=== PATIENT | female | born 2000 | race Caucasian/White ===

== ENCOUNTER 2022-06-20 00:12 | Emergency (ER) | payer SELFPAY ==
--- NOTE | ~2022-06-20 | XR_ITS ---
EXAMINATION: XR CHEST CLINICAL INFORMATION: Productive cough COMPARISON: None available. TECHNIQUE: Frontal view of the chest was obtained. FINDINGS: No significant abnormality is noted involving the heart, lungs, mediastinum, bony thorax or soft tissues. XR/XR chest 1V IMPRESSION: Unremarkable examination.
[2022-06-20 00:56] VITALS: BP 98/67; PULSE 91; RESP 18; TEMP 36.8; O2SAT 100; BMI 36.2
--- NOTE | 2022-06-20 01:12 | MHC.EDTECH ---
PT BLOOD DRAWN AND COVID SWAB COLLECTED AND SENT TO LAB .
[2022-06-20 01:13] LABS: MANUAL DIFF FLAG NO
[2022-06-20 01:16] LABS: Basophils Absolute Auto 0.1 X10*3/uL (0.0-0.2); Basophils Percent Auto 0.5 % (0-2); Eosinophils Absolute Auto 0.1 X10*3/uL (0.0-0.4); Eosinophils Percent Auto 0.7 % (0-4); Hematocrit 35.4 % (37.0-47.0); Hemoglobin 11.3 g/dl (12.0-16.0); Imm Gran Abs Auto 0.06 X10*3/uL (0.00-0.03); Imm Gran Pct Auto 0.4 % (0.0-0.4); Lymphocytes Absolute Auto 3.8 X10*3/uL (1.2-4.9); Lymphocytes Percent Auto 25.1 % (20-40); Mean Corpuscular HGB Conc 31.9 g/dl (31.0-35.0); Mean Corpuscular Hemoglobin 25.4 pg (27.0-33.0); Mean Corpuscular Volume 79.6 fL (80.0-98.0); Mean Platelet Volume 9.7 fL (9.4-12.3); Monocytes Absolute Auto 0.7 X10*3/uL (0.1-1.2); Monocytes Percent Auto 4.3 % (2-11); Neutrophils Absolute Auto 10.5 x10*3/uL (2.0-8.3); Platelet Count 345 X10*3/uL (160-400); Red Blood Count 4.45 X10*6/uL (4.20-5.50); Red Cell Distribution Width 13.3 % (11.0-16.0); White Blood Count 15.2 X10*3/uL (4.8-10.8)
[2022-06-20 01:29] LABS: COVID-19 Test Negative (Negative); IDNOW Serial# 6674DD1D
[2022-06-20 01:33] LABS: Alanine Aminotransferase 12 U/L (0-31); Albumin Level 4.1 g/dL (3.5-5.0); Alkaline Phosphatase 72 U/L (39-117); Anion Gap 17 (12-20); Aspartate Amino Transferase 16 U/L (5-31); Bilirubin Total 0.5 mg/dL (0.0-1.0); Blood Urea Nitrogen 12 mg/dL (9-16); Calcium 9.3 mg/dL (8.4-10.2); Carbon Dioxide 19 mmol/L (22-29); Chloride 104 mmol/L (96-108); Creatinine Clr Calc Pharmacy 116.8; Estimated Glomerular Filt Rate > 60; Glucose Random 126 mg/dL (60-115); Potassium 4.3 mmol/L (3.3-5.1); Sodium 136 mmol/L (135-145); Total Protein 7.4 g/dL (6.5-8.0)
--- NOTE | 2022-06-20 02:04 | ED_ITS ---
HPI - General Adult General Chief complaint: General Medical Stated complaint: Cold sores on tongue, multiple complaints Time Seen by Provider: 06/20/22 01:54 Source: patient Mode of arrival: ambulatory Limitations: no limitations History of Present Illness HPI narrative: Patient With nasal congestion for last 2 weeks cough occasional phlegm for last 3 days noticed ulceration on the right side of tongue. Patient diagnosed strep 2 weeks ago taken antibiotic Related Data Allergies Allergy/AdvReac Type Severity Reaction Status Date / Time No Known Allergies Allergy Verified 06/20/22 00:56 Review of Systems Review of Systems: Yes all other systems are reviewed and are negative [facility] Social History Social History Advance Directives: No Advance Directives Information Provided: Yes Physical Exam ED Vital Signs: Vital Signs - 24 hr 06/20/22 00:56 Temperature 98.3 F Pulse Rate 91 Respiratory Rate 18 Blood Pressure 98/67 Pulse Oximetry 100 Oxygen Delivery Method Room Air BMI result Body Mass Index 36.2 Appearance: Alert. Oriented X3. No acute distress. Eyes: PERRLA, No Nystagmus ENT: Pharynx normal. Oral Mucosa moist tongue superficial ulceration right later al margin Neck: Normal inspection. Neck supple. CVS: Normal heart rate and rhythm. Pulses normal. Respiratory: No respiratory distress. Equal air entry bilateral, no wheezing/rales/rhonchi Abdomen: Soft and nontender. Skin: Skin warm and dry. Normal skin color. Normal skin turgor. Extremities: No lower extremity edema. No calf tenderness Neuro: Oriented X 3. Medical Decision Making Lab Data [facility] Lab Attestation statement: I reviewed the patient's lab results. 06/20/22 01:09 06/20/22 01:09 Labs: Lab Results 06/20/22 06/20/22 06/20/22 Range/Units 01:09 01:09 01:09 WBC 15.2 H (4.8-10.8) X10*3/uL RBC 4.45 (4.20-5.50) X10*6/uL Hgb 11.3 L (12.0-16.0) g/dl Hct 35.4 L (37.0-47.0) % MCV 79.6 L (80.0-98.0) fL MCH 25.4 L (27.0-33.0) pg MCHC 31.9 (31.0-35.0) g/dl RDW 13.3 (11.0-16.0) % Plt Count 345 (160-400) X10*3/uL MPV 9.7 (9.4-12.3) fL Immature Gran % (Auto) 0.4 (0.0-0.4) % Neut % (Auto) 69.0 (45-73) % Lymph % (Auto) 25.1 (20-40) % [place] % (Auto) 4.3 (2-11) % Eos % (Auto) 0.7 (0-4) % Baso % (Auto) 0.5 (0-2) % Lymph # (Auto) 3.8 (1.2-4.9) X10*3/uL [place] # (Auto) 0.7 (0.1-1.2) X10*3/uL Eos # (Auto) 0.1 (0.0-0.4) X10*3/uL Baso # (Auto) 0.1 (0.0-0.2) X10*3/uL Abs Immat Gran (auto) 0.06 H (0.00-0.03) X10*3/uL Absolute Neuts (auto) 10.5 H (2.0-8.3) x10*3/uL Absolute Nucleated RBC 0.000 (0.0-0.012) X10*3/uL Nucleated RBC % (auto) 0.0 (0.0-0.2) /100WBC Sodium 136 (135-145) mmol/L Potassium 4.3 (3.3-5.1) mmol/L Chloride 104 (96-108) mmol/L Carbon Dioxide 19 L (22-29) mmol/L Anion Gap 17 (12-20) BUN 12 (9-16) mg/dL Creatinine 0.80 (0.5-1.4) mg/dL Estim Creat Clear Calc 116.8 Estimated GFR > 60 Random Glucose 126 H (60-115) mg/dL Calcium 9.3 (8.4-10.2) mg/dL Total Bilirubin 0.5 (0.0-1.0) mg/dL AST 16 (5-31) U/L ALT 12 (0-31) U/L Alkaline Phosphatase 72 (39-117) U/L Total Protein 7.4 (6.5-8.0) g/dL Albumin 4.1 (3.5-5.0) g/dL COVID-19 (GEORGI) Negative (Negative) COVID-19 Clin Com See Note Discharge Plan Discharge Clinical Impression: Oral aphthous ulcer Patient Disposition: Home, Self-Care Instructions: Canker Sores (ED) Additional Instructions: Avoid hot drinks orajel as advised for pain Stand Alone Forms: Work/School Release Interventions: ED Discharge Assessment Last Done: 06/20/22 02:42 Discharge Date/Time: 06/20/22 02:35
== END 2022-06-20 02:35 | disposition home or self-care (01) ==
PROVIDERS: Emergency Provider Internal Medicine
DX: K12.0 Recurrent oral aphthae (principal); Z20.822 Contact with and (suspected) exposure to COVID-19
CPT/HCPCS: 71045; 80053; 85025; 87635; 99283

== ENCOUNTER 2022-07-10 06:08 | Emergency (ER) | payer SELFPAY ==
[2022-07-10 06:09] VITALS: BP 130/79; PULSE 84; RESP 18; TEMP 36.1; O2SAT 98; BMI 34.2
[2022-07-10 06:35] VITALS: BP 104/45; PULSE 74; RESP 16; TEMP 36.8; O2SAT 98; BMI 34.2
--- NOTE | 2022-07-10 06:38 | ED.GENADULT ---
HPI - General Adult General Chief complaint: Ear Problems Stated complaint: Left ear pain,? infection Time Seen by Provider: 07/10/22 06:34 Source: patient Mode of arrival: ambulatory Limitations: no limitations History of Present Illness HPI narrative: Patient is a 22 year old assigned female at with no reported medical history presenting to the emergency department today with left ear pain. Patient states that approximately 2 days ago, she began to have left ear pain. Patient denies any dizziness, lightheadedness, abdominal pain, nausea, vomiting, fever, chills, blurry vision, double vision, loss of vision, chest pain, difficulty breathing, shortness of breath, back pain, night sweats, pain with urination, increased urinary frequency, increased urinary urgency, blood in her urine or stool, syncope or a near syncopal episode, recent trauma or falls, bowel incontinence, bladder incontinence, bowel retention, bladder retention, or any other complaints at this time. Onset (ago): day(s) (2) Location: left (ear) Radiation: non-radiation Severity: mild Severity scale (1-10): 2 Quality: aching and dull Pain Consistency: constant Relieving factors: none Exacerbating factors: none Associated symptoms: denies other symptoms Treatments prior to arrival: none Related Data Previous Rx's Medication Instructions Recorded amoxicillin 875 mg tablet 875 mg PO BID 7 days #14 tabs 07/10/22 Allergies Allergy/AdvReac Type Severity Reaction Status Date / Time No Known Allergies Allergy Verified 06/20/22 00:56 Review of Systems Constitutional: Constitutional: Reports no additional constitutional complaints, Denies chills, Denies fever(s) and Denies night sweats Eyes: Eyes: Reports no additional eye complaints, Denies blurry vision, Denies change in vision, Denies diplopia, Denies eye discharge, Denies loss of vision and Denies eye pain ENT: Denies dizziness Comments: left ear pain Cardiovascular: Cardiovascular: Reports no additional cardiovascular complaints, Denies chest pain, Denies lightheadedness, Denies Loss of Consciousness and Denies dyspnea Respiratory: Respiratory: Reports no additional respiratory complaints and Denies dyspnea Gastrointestinal: Gastrointestinal: Reports no additional gastrointestinal complaints, Denies abdominal pain, Denies melena, Denies hematochezia, Denies change in bowel habits and Denies change in stool character Genitourinary: Genitourinary: Denies hematuria, Denies urinary frequency, Denies dysuria, Denies urinary incontinence, Denies urinary hesitancy and Denies urinary urgency Musculoskeletal: Musculoskeletal: Reports no additional musculoskeletal complaints, Denies numbness and Denies tingling Neurologic: Denies dizziness, Denies loss of vision, Denies numbness and Denies tingling Psychiatric: Psychiatric: Reports no additional psychiatric complaints Endocrine: Endocrine: Reports no additional endocrine complaints Hematologic/Lymphatic: Hematologic/Lymphatic: Reports no additional hematologic/lymphatic complaints Allergic/Immunologic: Allergic/Immunologic: Reports no additional allergic/immunologic complaints [facility] Past Medical History Attestation statement: The following information was validated with the patient. Source: old records reviewed and nursing notes reviewed Social History Social History Advance Directives: No Advance Directives Information Provided: Yes Physical Exam ED Vital Signs: Vital Signs - 24 hr 07/10/22 06:09 07/10/22 06:35 Temperature 96.9 F 98.2 F Pulse Rate 84 74 Respiratory Rate 18 16 Blood Pressure 130/79 104/45 L Pulse Oximetry 98 98 Oxygen Delivery Method Room Air Room Air BMI result Body Mass Index 34.2 Const General: cooperative, no acute distress, alert and awake Nutritional Appearance: well nourished Orientation/consciousness: patient oriented x3 Limitations: no limitations HENMT Head: Yes normal to inspection and Yes atraumatic Ears: hearing grossly normal bilaterally, external ears normal and TM abnormal erythematous on the left General nose exam: Normal external nose present, no nasal discharge noted and no epistaxis Face and sinus: Yes normal facial exam, No abrasion and No laceration Mouth: Normal oral and palatal mucosa present, no drooling and no muffled voice Eyes General: appearance normal, both eyes and all related structures Periorbital: periorbital findings normal Eyelids: Yes eyelids normal Conjunctivae: conjunctivae normal Pupils: Equal, round and reactive pupils present EOM: EOMs intact bilaterally Neck Neck: Yes normal visual inspection, Yes full ROM and Yes no lymphadenopathy Chest Chest palpation & inspection: normal inspection of the chest Resp Effort & Inspection: normal respiratory effort and able to speak in complete sentences GI Inspection: Yes normal to inspection Neuro General: patient oriented x3 and moves all extremities Cranial nerves: Yes Equal, round and reactive pupils present Cognition (Neuro): normal cognition Motor exam (neuro): 5/5 motor strength present throughout Sensory Exam: Normal double simultaneous stimulation for sensation Coordination: [id number] test normal Extrem General: Yes normal to inspection, Yes full ROM and Yes capillary refill normal Psych Appearance: grossly normal Mental Status: mental status grossly normal Affect: normal affect Attitude: cooperative Thought process: Normal thought process present Thought content: Normal thought content present Insight: Good insight present (Psych) Medical Decision Making Medical Decision Making MDM Narrative: Patient is a 22 year old assigned female at with no reported medical history presenting to the emergency department today with left ear pain. Patient's physical exam showed erythema of the left TM but was otherwise unremarkable. I explained my physical exam findings to the patient. I answered all questions asked by the patient. I stressed the importance of the patient taking her medication as prescribed. I stressed the importance of the patient following up with her primary care provider. I stressed the importance of the patient returning to the emergency department immediately if her symptoms were to worsen or if she were to develop any dizziness, shortness of breath, difficulty breathing, chest pain, blurry vision, loss of vision, nausea, vomiting, abdominal pain, fever, chills, back pain, or any other complaints. Patient verbalized agreement and understanding with this treatment plan and discharge. Differential Diagnosis Differential Diagnoses: The differential diagnosis associated with the presentation includes otitis media Discharge Plan Discharge Clinical Impression: Otitis media Patient Disposition: Home, Self-Care Instructions: Ear Infection (ED) Additional Instructions: Follow up with your primary care provider. Return to the emergency department immediately if your symptoms worsen or if you develop any dizziness, shortness of breath, difficulty breathing, chest pain, blurry vision, loss of vision, nausea, vomiting, abdominal pain, fever, chills, back pain, or any other complaints. Prescriptions: New amoxicillin 875 mg tablet 875 mg PO BID 7 Days Qty: 14 0RF Referrals: [facility] Family Medicine [Provider Group] (Call to establish and follow up with a primary care provider. If you already have a primary care provider, please follow up with them.) [facility] [Provider Group] (Call to establish and follow up with a primary care provider. If you already have a primary care provider, please follow up with them.) [facility] [Provider Group] (Call to establish and follow up with a primary care provider. If you already have a primary care provider, please follow up with them.) Stand Alone Forms: Work/School Release Print Language: Pashto
--- NOTE | 2022-07-10 07:14 | PC.NURSE ---
this customs entry writer assumed care of this pt at 0700. pt cleared for discharge at the time of assuming care.
--- NOTE | 2022-07-10 07:23 | PC.NURSE ---
discharge instructions reviewed with pt and friend at her bedside.
== END 2022-07-10 07:27 | disposition home or self-care (01) ==
PROVIDERS: Emergency Provider Emergency Medicine
DX: H66.92 Otitis media, unspecified, left ear (principal); H92.02 Otalgia, left ear
CPT/HCPCS: 99282

== ENCOUNTER 2022-11-20 15:25 | Emergency (ER) | payer SELFPAY ==
--- NOTE | ~2022-11-20 | XR_ITS ---
EXAMINATION: XR KNEE, LEFT CLINICAL INFORMATION: Knee pain. COMPARISON: None available. TECHNIQUE: AP and lateral views of the left knee. FINDINGS: No fracture or joint effusion appreciated. Alignment is anatomic. Joint spaces appear maintained. No abnormal soft tissue calcification. XR/XR knee LT 2V IMPRESSION: Normal plain film examination of the left knee.
--- NOTE | ~2022-11-20 | XR_ITS ---
EXAMINATION: XR ANKLE, RIGHT CLINICAL INFORMATION: Ankle pain. COMPARISON: None available. TECHNIQUE: AP, lateral, and mortise views of the right ankle. FINDINGS: No fracture identified. Alignment is anatomic. No erosions appreciated. Joint spaces appear maintained. Soft tissues appear unremarkable. XR/XR ankle RT min 3V IMPRESSION: Normal plain film examination of the right ankle.
[2022-11-20 15:30] VITALS: BP 123/70; PULSE 80; RESP 18; TEMP 36.1; O2SAT 100; BMI 37.1
--- NOTE | 2022-11-20 15:30 | ED.GENADULT ---
HPI - General Adult General Chief complaint: Extremity Injury, Lower Stated complaint: R ankle and L knee pain Time Seen by Provider: 11/20/22 18:31 History of Present Illness HPI narrative: Patient is a 22-year-old female who presents emergency department for evaluation of left knee and right ankle pain. She reports 3 [place] she reports near [place] and injuring her left knee and right ankle. She has been ambulatory since the incident occurred, however she has been having increasing pain without associated numbness, tingling, or cold sensation to the feet. She states that she feels unsteady when walking, and feels as though her left knee is going to ?give way?. She denies any prior injury to the knee. She does have a history of an ankle sprain on the right many years ago. Related Data Previous Rx's Medication Instructions Recorded amoxicillin 875 mg tablet 875 mg PO BID 7 days #14 tabs 07/10/22 Allergies Allergy/AdvReac Type Severity Reaction Status Date / Time No Known Allergies Allergy Verified 11/20/22 15:30 Review of Systems Review of Systems: Yes all other systems are reviewed and are negative [facility] Past Medical History Attestation statement: The following information was validated with the patient. Source: old records reviewed Social History Social History Advance Directives: No Advance Directives Information Provided: Yes Physical Exam ED Vital Signs: Vital Signs - 24 hr 11/20/22 15:30 Temperature 97.0 F Pulse Rate 80 Respiratory Rate 18 Blood Pressure 123/70 Pulse Oximetry 100 Oxygen Delivery Method Room Air BMI result Body Mass Index 37.1 Appearance: Alert.?Oriented to person, place and time. No acute distress.?Normal affect..?? Neck: Normal inspection.? Neck supple.?? CVS: Heart sounds normal. Normal heart rate and rhythm.? Pulses normal.?? Respiratory: No respiratory distress.? Lung sounds clear to auscultation bilaterally?? Abdomen: Soft and non-tender. Skin: Skin warm and dry.? Normal skin color.?? Extremities: No lower extremity edema.? No calf ttp. Left knee without evidence of effusion, no erythema, no warmth, no laxity upon examination; anterior/posterior drawer test negative, valgus and varus stress tests are negative. Right ankle without erythema, warmth, obvious deformity, full AROM intact. 2+DP/PT pulse bilaterally. Neuro: Moves all extremities spontaneously. Sensation intact bilaterally. Ambulates with slow antalgic gait. Course Course Course Narrative: This is an RME: Additional HPI, ROS, PE not included below will be deferred to primary provider. 22 year old female presenting after injuring herself while [place]. She reports injury to her left knee and right ankle. Rates her pain a 7/10. Denies numbness or tingling. Pain and feels unsteady walking as her joints may give way. Plan: imaging Medical Decision Making Medical Decision Making MDM Narrative: Patient is a 22-year-old female presents emergency department for evaluation of traumatic left knee and right ankle pain after incident 3 days ago. She is ambulatory with a slow antalgic gait. Her pain is most notable to the left knee. On examination there is no evidence of septic arthritis, she is overall well-appearing nontoxic. No significant effusion or gross abnormality of the joints upon examination. XR imaging of the left knee as well as the right ankle without evidence of acute fracture or dislocation. Discussed pain management with acetaminophen/ibuprofen, provided with crutches to offload weight from left knee, Reagan bandage for compression. Reviewed rest, ice, elevation. Advised outpatient follow-up with primary care provider for persistent symptoms. Discussed worrisome signs and symptoms that would warrant re-evaluation emergency department. All questions answered. Stable for discharge. Differential Diagnosis Differential Diagnoses: The differential diagnosis associated with the presentation includes (Fracture of in dislocation, sprain) Independent Interpretation I performed an independent interpretation of an: Plain X-Ray (I personally interpreted XR imaging agree with radiologist impression, no evidence of acute fracture dislocation.) Radiology Impression Discussion of test interpretation with radiology: I have reviewed the radiologist's reading. Radiologist Impression: XR/XR ankle RT min 3V IMPRESSION: Normal plain film examination of the right ankle. XR/XR knee LT 2V IMPRESSION: Normal plain film examination of the left knee. Independent Historian Clinical information obtained from an independent historian. History obtained from or confirmed by: Spouse (Present at bedside a confirms history) Prescription Management I considered prescription management with: Pain Medication (Acetaminophen/ibuprofen) Discharge Plan Discharge Clinical Impression: Ankle sprain and strain, Sprain of knee Patient Disposition: Home, Self-Care Instructions: Ankle Sprain (ED) Additional Instructions: As discussed, please follow-up with your primary care provider. X-ray today does not show any evidence of fracture dislocation. Use the crutches as needed to bear weight. Use Reagan bandage for compression and support. Be sure to rest, elevate your leg when possible. You can take ibuprofen 200 mg, 3 tablets (600mg) every 6-8 hours as needed for pain, in addition to Tylenol 500 mg, 2 tablets (1,000mg) every 4-6 hours as needed for pain, but not to exceed 3 doses daily (3,000mg).? Prescriptions: No Action amoxicillin 875 mg tablet 875 mg PO BID 7 Days Qty: 14 0RF Referrals: Physician,Unknown J [Primary Care Provider] - Stand Alone Forms: Work/School Release Interventions: ED Discharge Assessment Last Done: 11/20/22 19:24 Discharge Date/Time: 11/20/22 19:25
== END 2022-11-20 19:25 | disposition home or self-care (01) ==
PROVIDERS: Emergency Provider Emergency Medicine
DX: S93.402A Sprain of unspecified ligament of left ankle, initial encounter (principal); S83.92XA Sprain of unspecified site of left knee, initial encounter; M25.571 Pain in right ankle and joints of right foot; M25.562 Pain in left knee; Y33.XXXA Other specified events, undetermined intent, initial encounter; Y93.9 Activity, unspecified; Y92.9 Unspecified place or not applicable; Y99.9 Unspecified external cause status
CPT/HCPCS: 73560; 73610; 99282; 99283

== ENCOUNTER 2023-05-04 18:18 | Emergency (ER) | payer SELFPAY ==
[2023-05-04 18:41] VITALS: BP 130/65; PULSE 90; RESP 16; TEMP 36.9; O2SAT 100; BMI 35.2
--- NOTE | 2023-05-04 18:41 | ED_ITS ---
HPI - General Adult General Chief complaint: General Medical Stated complaint: vomiting, dizzy, hot flashes Time Seen by Provider: 05/04/23 18:55 Source: patient, RN notes reviewed and old records reviewed Mode of arrival: ambulatory History of Present Illness HPI narrative: 23-year-old female with no significant past medical history presenting to the ED complaining of intermittent lightheadedness, nausea, vomiting, mid-abdominal pain, chills/hot flashes, congestion & myalgias x1 week. Also reports decreased PO intake. Denies diarrhea, cough, suspicious food intake, cough, SOB/CP. Admits sister with COVID 2 wks ago Onset (ago): week(s) Related Data Previous Rx's Medication Instructions Recorded amoxicillin 875 mg tablet 875 mg PO BID 7 days #14 tabs 07/10/22 Allergies Allergy/AdvReac Type Severity Reaction Status Date / Time No Known Allergies Allergy Verified 05/04/23 18:45 Review of Systems 2 Review of Systems: Constitutional: +subj Fever, + Chills, +malaise ENT/Mouth: No Ear Pain, + Nasal Congestion, No Sinus Pain, No Hoarseness, No sore throat, +Rhinorrhea, No Swallowing Difficulty Cardiovascular: No Chest Pain, No SOB Respiratory: No Cough, No Sputum, No Wheezing Gastrointestinal: + Nausea, +Vomiting, No Diarrhea, No Constipation, + Abdominal pain Genitourinary: No Dysuria, No Urinary Frequency, No Hematuria, No Flank Pain Musculoskeletal: No joint pain, +Myalgias, No Joint Swelling Skin: No Skin Lesions, No rash Neuro: No Weakness, No Numbness, No Paresthesias, + intermittent lightheadedness Yes all other systems are reviewed and are negative Constitutional: Constitutional: Reports as per HPI Neurologic: Denies Abnormal speech present [facility] Past Medical History Attestation statement: The following information was validated with the patient. Source: old records reviewed Social History Social History Advance Directives: No Advance Directives Information Provided: No Physical Exam ED Vital Signs: Vital Signs - 24 hr 05/04/23 18:41 05/04/23 19:22 05/04/23 19:23 Temperature 98.5 F Pulse Rate 90 80 82 Respiratory Rate 16 Blood Pressure 130/65 107/50 L 110/60 Pulse Oximetry 100 Oxygen Delivery Method Room Air 05/04/23 19:24 Temperature Pulse Rate 84 Respiratory Rate Blood Pressure 117/62 Pulse Oximetry Oxygen Delivery Method BMI result Body Mass Index 35.2 Const General: cooperative, healthy appearing and no acute distress Orientation/consciousness: patient oriented x3 Limitations: no limitations HENMT Head: Yes normal to inspection and Yes atraumatic Ears: hearing grossly normal bilaterally General nose exam: Normal external nose present Face and sinus: Yes normal facial exam Mouth: Normal oral and palatal mucosa present Throat: Yes posterior oropharynx normal, Yes tonsils normal, Yes uvula midline, No peritonsillar mass, No uvula laterally displaced and No uvular edema Eyes General: appearance normal, both eyes and all related structures EOM: EOMs intact bilaterally Neck Neck: Yes normal visual inspection and Yes no meningeal signs Resp Effort & Inspection: normal respiratory effort and no respiratory distress Auscultation: clear to auscultation bilaterally, no crackles and no wheezes Cardio Rate: regular rate Heart sounds: S1 normal heart sound present and S2 normal heart sound present GI Inspection: Yes normal to inspection Palpation (GI): Soft to palpation, nontender, no guarding and not rigid Skin Rashes: no rashes Wounds: no wounds Neuro General: patient oriented x3, gait normal, tone normal, moves all extremities, no meningeal signs, no focal motor deficits and CN's II-XI intact bilaterally Cranial nerves: Yes CN's II-XII intact bilaterally and Yes Bilaterally intact EOM present Cognition (Neuro): normal cognition Speech: No Abnormal speech present Gait exam (Neuro): Normal gait present Motor exam (neuro): 5/5 motor strength present throughout and no tremor noted Extrem General: Yes normal to inspection Course Course Course Narrative: -194--labs reassuring. UA contaminated, will wait on culture prior to initiating antibiotics. negative. -COVID/flu negative -orthostatic vital signs negative Results discussed with patient including worrisome signs and symptoms and strict return precautions, and when to return to the emergency department. They verbalized understanding and feel safe for discharge at this time. Medical Decision Making Medical Decision Making [facility] Narrative: 23-year-old female with no significant past medical history presenting to the ED complaining of lightheadedness, nausea, vomiting, mid-abdominal pain, chills/hot flashes, congestion & myalgias x1 week. On exam vital signs stable, NAD, nontoxic appearing, no focal neuro deficits, abdomen soft/nontender. Denies lightheadedness at present. Concern for viral illness vs metabolic/infectious etiologies vs dehydration. Low suspicion for appendicitis/diverticulitis, pancreatitis or cholecystitis/lithiasis without tenderness on exam Plan: EKG, labs, UA, viral testing, p.o. trial. Please refer to course for remaining clinical decision making, interpretation of labs/imaging results, and discussions with consultants and/or family members. Differential Diagnosis Differential Diagnoses: The differential diagnosis associated with the presentation includes As above Admission/Observation Consideration of admission/observation: Escalation of care including admission/observation considered Lab Data MDM Lab Attestation statement: I reviewed the patient's lab results. 05/04/23 18:58 05/04/23 18:58 Labs: Lab Results 05/04/23 05/04/23 Range/Units 18:58 19:14 WBC 10.9 H (4.8-10.8) X10*3/uL RBC 4.80 (4.20-5.50) X10*6/uL Hgb 12.6 (12.0-16.0) g/dl Hct 39.0 (37.0-47.0) % MCV 81.3 (80.0-98.0) fL MCH 26.3 L (27.0-33.0) pg MCHC 32.3 (31.0-35.0) g/dl RDW 13.3 (11.0-16.0) % Plt Count 350 (160-400) X10*3/uL MPV 9.7 (9.4-12.3) fL Immature Gran % (Auto) 0.6 H (0.0-0.4) % Neut % (Auto) 70.3 (45-73) % Lymph % (Auto) 24.1 (20-40) % [place] % (Auto) 4.2 (2-11) % Eos % (Auto) 0.4 (0-4) % Baso % (Auto) 0.4 (0-2) % Lymph # (Auto) 2.6 (1.2-4.9) X10*3/uL [place] # (Auto) 0.5 (0.1-1.2) X10*3/uL Eos # (Auto) 0.0 (0.0-0.4) X10*3/uL Baso # (Auto) 0.0 (0.0-0.2) X10*3/uL Abs Immat Gran (auto) 0.07 H (0.00-0.03) X10*3/uL Absolute Neuts (auto) 7.6 (2.0-8.3) x10*3/uL Absolute Nucleated RBC 0.000 (0.0-0.012) X10*3/uL Nucleated RBC % (auto) 0.0 (0.0-0.2) /100WBC Sodium 136 (135-145) mmol/L Potassium 4.7 (3.3-5.1) mmol/L Chloride 105 (96-108) mmol/L Carbon Dioxide 26 (22-29) mmol/L Anion Gap 10 L (12-20) BUN 9 (9-16) mg/dL Creatinine 0.75 (0.5-1.4) mg/dL Estim Creat Clear Calc 116.9 Estimated GFR > 60 Random Glucose 113 (60-115) mg/dL Calcium 9.3 (8.4-10.2) mg/dL Magnesium 1.8 (1.6-2.6) mg/dL Total Bilirubin 0.3 (0.0-1.0) mg/dL Direct Bilirubin 0.1 (0.0-0.5) mg/dL AST 13 (5-31) U/L ALT 15 (0-31) U/L Alkaline Phosphatase 79 (39-117) U/L Total Protein 7.7 (6.5-8.0) g/dL Albumin 4.0 (3.5-5.0) g/dL Lipase 24 (8-78) U/L Urine Color Yellow Urine Appearance Cloudy Urine pH 7.0 (5.0-9.0) Ur Specific [place] 1.025 (1.005-1.025) Urine Protein Negative (Neg-Trace) mg/dL Urine Glucose (UA) Negative (Negative) mg/dL Urine Ketones Trace (Negative) mg/dL Urine Blood Negative (Negative) Urine Nitrite Negative (Negative) Ur Leukocyte Esterase Moderate (2+) H (Negative) Urine RBC 0-2 (0-2) /HPF Urine WBC >50 H (0-5) /HPF Ur Squamous Epith Cells >20 (0-2) /HPF Urine Bacteria 2+ (None Seen) Hyaline Casts 0-2 (0-2) /LPF Urine Test NEGATIVE (NEGATIVE) COVID-19 (GEORGI) Negative (Negative) COVID-19 Clin Com See Note Influenza Type A (LOYDA) Negative (Negative) Influenza Type B (LOYDA) Negative (Negative) Influenza A & B Note See Note Independent Interpretation I performed an independent interpretation of an: EKG (My interpretation EKG normal sinus rhythm rate of 82. QRS duration 78. QTC 399. No STEMI. Nonischemic.) Radiology Impression Discussion of test interpretation with radiology: I have reviewed the radiologist's reading. External Record Review External record reviewed: Inpatient record, Office record, Outpatient record, Prior outpatient labs, Prior outpatient radiology, Primary care record and Outside ED record Tests considered The following testing was considered but not selected: As above Prescription Management I considered prescription management with: Pain Medication Discharge Plan Discharge Clinical Impression: Acute viral syndrome, Episodic lightheadedness Patient Disposition: Home, Self-Care Additional Instructions: Make sure you are staying hydrated at home. Your workup was reassuring today Please have close follow-up with her doctor If symptoms persist or worsen please return to the emergency department Prescriptions: No Action amoxicillin 875 mg tablet 875 mg PO BID 7 Days Qty: 14 0RF Referrals: Physician,Unknown J [Primary Care Provider] - 1 week
--- NOTE | 2023-05-04 18:43 | ECG_ITS ---
Test Reason : LIGHTHEADEDNESS Blood Pressure : / mmHG Vent. Rate : 082 BPM Atrial Rate : 082 BPM P-R Int : 138 ms QRS Dur : 078 ms QT Int : 342 ms P-R-T Axes : 034 024 010 degrees QTc Int : 399 ms Normal sinus rhythm Nonspecific T wave abnormality Abnormal ECG No previous ECGs available Referred By: Analisa Poon Electronically Signed By:Connor Giron
[2023-05-04 19:08] LABS: Basophils Percent Auto 0.4 % (0-2); Eosinophils Percent Auto 0.4 % (0-4); Hemoglobin 12.6 g/dl (12.0-16.0); Imm Gran Abs Auto 0.07 X10*3/uL (0.00-0.03); Imm Gran Pct Auto 0.6 % (0.0-0.4); Lymphocytes Absolute Auto 2.6 X10*3/uL (1.2-4.9); Lymphocytes Percent Auto 24.1 % (20-40); MANUAL DIFF FLAG NO; Mean Corpuscular HGB Conc 32.3 g/dl (31.0-35.0); Mean Corpuscular Hemoglobin 26.3 pg (27.0-33.0); Mean Corpuscular Volume 81.3 fL (80.0-98.0); Mean Platelet Volume 9.7 fL (9.4-12.3); Monocytes Absolute Auto 0.5 X10*3/uL (0.1-1.2); Monocytes Percent Auto 4.2 % (2-11); Neutrophils Absolute Auto 7.6 x10*3/uL (2.0-8.3); Neutrophils Percent Auto 70.3 % (45-73); Platelet Count 350 X10*3/uL (160-400); Red Cell Distribution Width 13.3 % (11.0-16.0); White Blood Count 10.9 X10*3/uL (4.8-10.8)
[2023-05-04 19:22] VITALS: BP 107/50; PULSE 80
[2023-05-04 19:22] LABS: Alanine Aminotransferase 15 U/L (0-31); Alkaline Phosphatase 79 U/L (39-117); Anion Gap 10 (12-20); Aspartate Amino Transferase 13 U/L (5-31); Bilirubin Direct 0.1 mg/dL (0.0-0.5); Bilirubin Total 0.3 mg/dL (0.0-1.0); Blood Urea Nitrogen 9 mg/dL (9-16); Calcium 9.3 mg/dL (8.4-10.2); Carbon Dioxide 26 mmol/L (22-29); Chloride 105 mmol/L (96-108); Creatinine Clr Calc Pharmacy 116.9; Estimated Glomerular Filt Rate > 60; Glucose Random 113 mg/dL (60-115); Lipase 24 U/L (8-78); Magnesium 1.8 mg/dL (1.6-2.6); Potassium 4.7 mmol/L (3.3-5.1); Sodium 136 mmol/L (135-145); Total Protein 7.7 g/dL (6.5-8.0)
[2023-05-04 19:23] VITALS: BP 110/60; PULSE 82
[2023-05-04 19:23] LABS: COVID-19 Test Negative (Negative); IDNOW Serial# 55D5AD1C
[2023-05-04 19:24] VITALS: BP 117/62; PULSE 84
[2023-05-04 19:24] LABS: IDNOW Serial# 16C4AD1C; Influenza A Negative (Negative); Influenza B2 Negative (Negative)
[2023-05-04 19:29] LABS: Appearance Urine Cloudy; Color Urine Yellow; Glucose Urine UA Negative (Negative); Leukocyte Esterase Urine Moderate (2+) (Negative); Nitrite Urine Negative (Negative); Specific Gravity - Urine 1.025 (1.005-1.025); UMIC TRIGGER UACC YES; Urine Blood Negative (Negative); Urine Ketones Trace mg/dL (Negative); Urine Protein Negative (Neg-Trace)
[2023-05-04 19:32] LABS: UPreg QC Valid YES; Urine Pregnancy NEGATIVE (NEGATIVE)
[2023-05-04 19:34] LABS: Bacteria Urine 2+ (None Seen); Hyaline Casts Urine 0-2 /LPF (0-2); RBC Urine 0-2 /HPF (0-2); Squamous Epithelial Cell Urine >20 /HPF (0-2); UACC Culture Trigger YES; WBC Urine >50 /HPF (0-5)
== END 2023-05-04 19:52 | disposition home or self-care (01) ==
PROVIDERS: Physician Assistant; Emergency Provider Student in an Organized Health Care Education/Training Program
DX: B34.9 Viral infection, unspecified (principal); R42 Dizziness and giddiness; R10.9 Unspecified abdominal pain
CPT/HCPCS: 36415; 80048; 80076; 81001; 81025; 83690; 83735; 85025; 87086; 87502; 87635; 93005; 99284

== ENCOUNTER → 2023-05-04 18:43 | Outpatient (BNV) | payer SELFPAY | PROVIDERS: Emergency Provider Student in an Organized Health Care Education/Training Program; Visit Provider Internal Medicine Cardiovascular Disease | DX: R94.31 Abnormal electrocardiogram [ECG] [EKG] (principal) | CPT/HCPCS: 93010 ==

== ENCOUNTER 2023-05-16 15:50 | Emergency (ER) | payer SELFPAY ==
[2023-05-16 15:59] VITALS: BP 147/67; PULSE 93; RESP 18; TEMP 37.4; O2SAT 98; BMI 31.1
--- NOTE | 2023-05-16 15:59 | ED_ITS ---
HPI - General Adult General Chief complaint: Upper Respiratory Symptoms Stated complaint: 12/25 sore throat, fever, chills, cant talk Time Seen by Provider: 05/16/23 16:04 Source: patient Mode of arrival: ambulatory Limitations: no limitations History of Present Illness HPI narrative: 23 year old female hx of obesity presents w/ fevers and chills X 1 week and sore throat ( w/ radiation to r. ear) that started yesterday. Burning pain in throat hurts to eat and talk. No sick contacys. Denies n, v, d, abd pain, cp, sob, headache, vision changes, dizziness, weakness. Related Data Previous Rx's Medication Instructions Recorded amoxicillin 875 mg tablet 875 mg PO BID 7 days #14 tabs 07/10/22 acetaminophen 325 mg capsule 325 mg PO Q4H PRN pain #30 caps 05/16/23 (Tylenol) amoxicillin 875 mg-potassium 1 tab PO BID 10 days #20 tabs 05/16/23 clavulanate 125 mg tablet prednisone 20 mg tablet 40 mg (2 x 20 mg) PO DAILY 5 days 05/16/23 #10 tabs Allergies Allergy/AdvReac Type Severity Reaction Status Date / Time No Known Allergies Allergy Verified 05/04/23 18:45 Review of Systems Review of Systems: Yes all other systems are reviewed and are negative PMFSH Past Medical History Attestation statement: The following information was validated with the patient. Source: old records reviewed and nursing notes reviewed Social History Social History Advance Directives: No Advance Directives Information Provided: No Physical Exam ED Vital Signs: Vital Signs - 24 hr 05/16/23 15:59 Temperature 99.4 F Pulse Rate 93 Respiratory Rate 18 Blood Pressure 147/67 H Pulse Oximetry 98 Oxygen Delivery Method Room Air BMI result Body Mass Index 31.1 vss Appearance: Alert.? Oriented X3.? No acute distress.? Head: Normocephalic, atraumatic, no step-offs or deformities Eyes: Pupils equal, round and reactive to light.? ENT: Pharynx w/ errythema and b/l tonsils w/ edema and exudate ( both equally swollen), uvula midline no deviation. Speaking in full sentences controlling secretions well. NO LAD Neck: Normal inspection.? Neck supple.? CVS: Normal heart rate and rhythm.? Pulses normal.? Respiratory: No respiratory distress.? Breath sounds normal.? Abdomen: Soft and nontender.? Skin: Skin warm and dry.? Normal skin color.? Normal skin turgor.? Extremities: No lower extremity edema.? No calf ttp. 5/5 strength to bilateral upper and lower extremities Back: No midline tenderness, no C-spine tenderness, full range of motion, no CVA tenderness bilaterally Neuro: Oriented X 3.? No motor deficit.? No sensory deficit. CN 2-12 intact Course Course Course Narrative: This is a rapid medical exam: Additional HPI, ROS, PE not included below will be deferred to primary provider. Patient is a 23-year-old female presenting to the ED with complaint of sore throat, fever, chills, left ear pain for the past week. Tonsils edematous but symmetrical. Did not take any OTC medications [employer]. Plan: strep and viral swabs Medical Decision Making Medical Decision Making [facility] [place] Narrative: 23 yo f presents w/ fevers and chills X1 week and sore throat X 2 days PE Pharynx w/ errythema and b/l tonsils w/ edema and exudate ( both equally swollen), uvula midline no deviation. Speaking in full sentences controlling secretions well. NO LAD Hx and pe concerning for strep. Unlikely epiglotitis, RPA, [employer], threat to airway. No signs of respiratory distress. Plan- viral swabs and strep test. Differential Diagnosis Differential Diagnoses: The differential diagnosis associated with the presentation includes Hx and pe concerning for strep. Unlikely epiglotitis, RPA, [employer], threat to airway. No signs of respiratory distress. Admission/Observation Consideration of admission/observation: Escalation of care including a dmission/observation considered Unlikely Lab Data [facility] [place] Lab Attestation statement: I reviewed the patient's lab results. Labs: Lab Results 05/16/23 05/16/23 Range/Units 16:25 16:26 Influenza Type A (PCR) Cancelled Influenza Type B (PCR) Cancelled RSV RNA Qual (PCR) Cancelled SARS-CoV-2 RNA (RT-PCR) Cancelled S. pyogenes GrpA LOYDA Positive A (Negative) External Record Review External record reviewed: Inpatient record, Office record, Outpatient record, Prior outpatient labs, Prior outpatient radiology, Primary care record and Outside ED record Prescription Management I considered prescription management with: Antibiotic and Other (prednisone ) Chronic Conditions Patient?s care impacted by: Other (obesity ) Critical Care Time Critical Care Time Critical Care Time: No Discharge Plan Discharge Clinical Impression: Strep pharyngitis Patient Disposition: Home, Self-Care Instructions: Pharyngitis (ED), Strep Throat (ED) Additional Instructions: Take your medications as prescribed. If you were prescribed antibiotics today, it is important that you take your medication to their entirety, do not skip any doses, do not finish them early. Follow-up with your primary care provider this week. Return to the emergency department with new or worsening symptoms. Such as fevers, chills, chest pain, shortness of breath, nausea, vomiting, dizziness, headache, vision changes, lethargy In case of emergency call 911 Prescriptions: New prednisone 20 mg tablet 40 mg PO DAILY 5 Days Qty: 10 0RF amoxicillin-pot clavulanate 875-125 mg tablet 1 tab PO BID 10 Days Qty: 20 0RF acetaminophen [Tylenol] 325 mg capsule 325 mg PO Q4H PRN (Reason: pain) Qty: 30 0RF No Action amoxicillin 875 mg tablet 875 mg PO BID 7 Days Qty: 14 0RF Referrals: Physician,Unknown J [Primary Care Provider] - 1 day Stand Alone Forms: Work/School Release
[2023-05-16 16:41] LABS: IDNOW Serial# 6674DD1D; Strep A Nucleic Acid Positive (Negative)
[2023-05-16] MEDS: dexAMETHasone sod phosphate 10 MG/ML VIAL IVPUSH (17:02)
[2023-05-16 18:11] LABS: Influenza A PCR POSITIVE (Negative); Influenza B PCR NEGATIVE (Negative); Resp Syncy Virus RNA Qual PCR NEGATIVE (Negative); SARS COV2 PCR INHOUSE NEGATIVE (Negative)
== END 2023-05-16 17:09 | disposition home or self-care (01) ==
PROVIDERS: Registered Nurse Emergency; Emergency Provider Emergency Medicine
DX: J02.0 Streptococcal pharyngitis (principal); R50.9 Fever, unspecified; Z11.52 Encounter for screening for COVID-19; Z20.822 Contact with and (suspected) exposure to COVID-19
CPT/HCPCS: 0241U; 87651; 99282; 99283; J1100

== ENCOUNTER 2023-07-16 20:21 | Emergency (ER) | payer SELFPAY ==
[2023-07-16 21:31] VITALS: BP 113/55; PULSE 88; RESP 20; TEMP 37.2; O2SAT 98; BMI 30.7
[2023-07-16 22:01] LABS: MANUAL DIFF FLAG NO
[2023-07-16 22:02] LABS: Basophils Absolute Auto 0.1 X10*3/uL (0.0-0.2); Basophils Percent Auto 0.5 % (0-2); Eosinophils Absolute Auto 0.1 X10*3/uL (0.0-0.4); Eosinophils Percent Auto 0.6 % (0-4); Hematocrit 34.8 % (37.0-47.0); Hemoglobin 11.6 g/dl (12.0-16.0); Imm Gran Abs Auto 0.06 X10*3/uL (0.00-0.03); Imm Gran Pct Auto 0.4 % (0.0-0.4); Lymphocytes Absolute Auto 2.7 X10*3/uL (1.2-4.9); Lymphocytes Percent Auto 20.1 % (20-40); Mean Corpuscular HGB Conc 33.3 g/dl (31.0-35.0); Mean Corpuscular Hemoglobin 26.8 pg (27.0-33.0); Mean Corpuscular Volume 80.4 fL (80.0-98.0); Mean Platelet Volume 9.3 fL (9.4-12.3); Monocytes Absolute Auto 0.6 X10*3/uL (0.1-1.2); Monocytes Percent Auto 4.8 % (2-11); Neutrophils Absolute Auto 9.9 x10*3/uL (2.0-8.3); Neutrophils Percent Auto 73.6 % (45-73); Platelet Count 336 X10*3/uL (160-400); Red Blood Count 4.33 X10*6/uL (4.20-5.50); White Blood Count 13.4 X10*3/uL (4.8-10.8)
[2023-07-16 22:15] LABS: Alanine Aminotransferase 16 U/L (0-31); Alkaline Phosphatase 69 U/L (39-117); Anion Gap 17 (12-20); Aspartate Amino Transferase 20 U/L (5-31); Bilirubin Total 0.4 mg/dL (0.0-1.0); Blood Urea Nitrogen 6 mg/dL (9-16); Calcium 9.5 mg/dL (8.4-10.2); Carbon Dioxide 20 mmol/L (22-29); Chloride 105 mmol/L (96-108); Estimated Glomerular Filt Rate > 60; Glucose Random 88 mg/dL (60-115); Potassium 4.1 mmol/L (3.3-5.1); Sodium 138 mmol/L (135-145); Total Protein 7.5 g/dL (6.5-8.0)
== END 2023-07-17 02:37 | disposition left against medical advice (07) ==
PROVIDERS: Emergency Provider Emergency Medicine
DX: O26.899 Other specified pregnancy related conditions, unspecified trimester (principal); R51.9 Headache, unspecified; O21.9 Vomiting of pregnancy, unspecified; O99.891 Other specified diseases and conditions complicating pregnancy; H92.09 Otalgia, unspecified ear; Z3A.00 Weeks of gestation of pregnancy not specified
CPT/HCPCS: 36415; 80053; 85025; 99281; 99283

== ENCOUNTER 2024-12-31 10:47 | Observation (INO) | payer OTHER, SELFPAY ==
--- NOTE | ~2024-12-31 | CT_ITS ---
EXAMINATION: CT ABDOMEN AND PELVIS WITH CONTRAST CLINICAL INFORMATION: Diffuse abdominal pain. Nausea, vomiting, diarrhea. COMPARISON: None available. TECHNIQUE: Multidetector volumetric images were obtained from the superior aspect of the liver through the pubic symphysis following administration 85 mL of Omnipaque 350 intravenous contrast. Sagittal and coronal reformatted images were obtained on the technologist's workstation. Oral contrast: No This CT examination was performed using dose optimization techniques as appropriate, variously including the following: *Automated exposure control *Adjustment of mA and/or kV according to patient size (this includes techniques or standardized protocols for targeted exams where dose is matched to indication/reason for exam; i.e. extremities or head) *Use of iterative reconstruction technique. DLP: 584 mGy centimeter. FINDINGS: LUNG BASES: No acute airspace disease. LIVER, GALLBLADDER, AND BILIARY TREE: Liver measures 19 cm. No focal mass. Hepatic veins main portal veins are patent. Gallbladder is nondistended. No pericholecystic fluid collection or gallbladder wall thickening. No intrahepatic or extrahepatic biliary ductal dilatation. PANCREAS: No focal mass. No peripancreatic fluid collection. No main pancreatic ductal dilatation. SPLEEN: 10 cm. No focal mass. ADRENAL GLANDS: No nodular lesions. KIDNEYS AND URETERS: No gross renal mass. No hydronephrosis. No gross nephrolithiasis. BLADDER: Fluid-filled nearly collapsed. GASTROINTESTINAL TRACT: Intestinal wall thickening resulting in narrowed lumen of the large intestine extending from the mid transverse colon to the rectosigmoid colon junction. Gas and fluid-filled mildly prominent small bowel loops. Questionable segmental intestinal wall thickening at the the jejunal loops. The appendix is short and normal. No ascites. No pneumoperitoneum. No pneumatosis intestinalis. ABDOMINAL WALL: No gross umbilical hernia. LYMPH NODES: No specific prominent mesenteric and retroperitoneal lymph nodes. VASCULAR: No aneurysm or dissection, abdominal aorta. PELVIC VISCERA: No gross masses OSSEOUS STRUCTURES: Sclerosis and the sacroiliac joints, bilaterally. No acute fracture or listhesis. CT/CT abdomen pelvis w IV con IMPRESSION: Concerning acute inflammatory bowel disease such as Crohn's disease in the correct clinical settings. Hepatomegaly. Fleischner guidelines were followed. Electronically signed by: Juancarlos August MD 12/31/2024 02:49 PM EDT
[2024-12-31 11:09] VITALS: BP 120/58; PULSE 74; RESP 18; TEMP 36.8; O2SAT 99; BMI 31.9
--- NOTE | 2024-12-31 11:15 | ED_ITS ---
HPI - General Adult General Chief complaint: Abdominal Pain Stated complaint: Abd pain, vomiting Time Seen by Provider: 12/31/24 12:44 Source: patient Mode of arrival: ambulatory Limitations: no limitations History of Present Illness ED Provider: Wilma Long PA-C HPI narrative: Well-appearing but uncomfortable 24-year-old female presenting to the emergency department today for evaluation of diffuse abdominal discomfort. Past medical history significant for . Erickson's Saturday 5 days ago patient has had what she describes as diffuse nausea vomiting and diarrhea between 3-15 episodes daily depending on her appetite and what she eats. She states normally she has no problems eating her ?[place] we can food ?. One day she tried just broth and chicken and it did not seem to calm down but she feels too much younger so she went back to her regular diet. She has no history of IBS. She denies noticing any blood in her stool or her vomit. She is without any dysuria urgency or frequency no vaginal symptoms. She denies any travel or sick contacts. No fevers and no chills no backache. Reports her stomach is waxing and waning for the severity and how much it hurts. She feels distended. Stool is described as brown loose and sometimes watery. No recent antibiotics. She is not able to tolerate any foods by mouth but fluids do stay down she is voiding regularly. Related Data Home Medications ?Medication ?Instructions ?Recorded ?Confirmed acetaminophen 500 mg tablet 1,000 mg PO Q6H 12/31/24 1 norethindrone 1 mg-ethinyl 1 tab PO DAILY 12/31/24 estradiol 20 mcg (21)-iron 75 mg (7) tablet (04/06 (28)) Allergies Allergy/AdvReac Type Severity Reaction Status Date / Time No Known Allergies Allergy Verified 12/31/24 11:12 Review of Systems 2 Review of Systems: Yes all other systems are reviewed and are negative [facility] Past Medical History Attestation statement: The following information was validated with the patient. Source: old records reviewed and nursing notes reviewed Social History Social History Patient Tobacco Use Status: Never used Tobacco Physical Exam ED Exam Exam: General: Appears in no acute distress, but holding stomach looking uncomfortable, appears well nourished body habitus is obese, appears stated age. No septic or ill-appearing. Vitals reviewed normal, PMH/Social and Surgical hx reviewed including allergies and current medications. - reviewed for prior visits here Head: Normocephalic, no obvious trauma or skin lesions noted. Eyes: EOMI, did not no scleral icterus noted PERRLA ENMT: moist oral mucosa uvula midline no trismus Neck: trachea midline no lymphadenopathy Cardiovascular: peripheral perfusion normal, Regular heart rate regular rhythm Respiratory: no respiratory distress lungs clear Abdomen: Obese abdomen diffusely tender in the epigastric and periumbilical and bilateral lower quadrant region no guarding negative Vidal's Extremities: warm and moving without difficulty unless otherwise detailed in physical exam if applicable. Psych: Cooperative Neuro: Alert and oriented. Vital Signs: Vital Signs - 24 hr 12/31/24 11:09 12/31/24 14:27 Temperature 98.2 F 97.5 F Pulse Rate 74 63 Respiratory Rate 18 14 Blood Pressure 120/58 L 119/58 L Pulse Oximetry 99 100 Oxygen Delivery Method Room Air Room Air BMI result Body Mass Index 31.9 Course Course Course Narrative: RME: 24 yold female presents to the ED periubmilical abdominal pain with nausea and diarrhea. Patient has states inconsistnet with control, but 3 test are negative. labs ordered Medications Administered Generic Name Dose Route Start Last Admin Trade Name Freq PRN Reason Stop Dose Admin Acetaminophen 650 mg 12/31/24 16:10 12/31/24 18:25 Acetaminophen 325 Mg Tablet PO 650 mg Q6H PRN Administration Pain, Mild 1-3,fever,headache Lactated Ringer's 1,000 mls @ 100 mls/hr 12/31/24 16:15 01/01/25 07:26 Lr IVCONT 100 mls/hr .Q10H [place] Administration Sodium Chloride 3 ml 01/01/25 00:00 01/01/25 07:28 0.9 % Sodium Chloride Flush 3 Ml Syringe IVFLUSH Not Given QSHIFT [place] Discontinued Medications Generic Name Dose Route Start Last Admin Trade Name Freq PRN Reason Stop Dose Admin Iohexol 100 ml 12/31/24 14:37 12/31/24 14:38 Iohexol 350 Mg/Ml 100 Ml Infus..Btl IV 10/16/25 14:38 85 ml ONCE ONE Administration Medical Decision Making Medical Decision Making MDM Narrative: 24-year-old female with no significant past medical history other than a C- section presenting to emergency department today for evaluation of abdominal pain associated with nausea vomiting diarrhea for the past 5 days. She does not appear to be dehydrated on exam and is afebrile. She does have an acutely tender abdomen but does not appear surgical. She is normotensive. From triage standpoint she had abdominal labs ordered including a you preg. I examined her and she has a diffusely tender abdomen we will order a CT scan of abdomen and pelvis with contrast differentials include colitis, viral versus food gastroenteritis, gastritis and IBS. Low clinical concern for gallbladder etiology and appendicitis given not acutely tender in these areas no vaginal symptoms concerning for ovarian torsion. Also has no symptoms concerning for UTI. No concern for STIs. She does not appear to be septic or ill at this time Patient's CBC without evidence for leukocytosis. She is borderline anemia does not meet transfusion criteria no blood in her stool not likely to be a GI bleed. No DERBA, no evidence of hepatobiliary disease, acute pancreatitis, UTI or . She has no CVA tenderness or flank pain concerning for potential pyelonephritis kidney stone. She is denying feeling nauseous at this time we will defer Zofran. Pain is controlled at this time IV medication is not needed we will continue to monitor while awaiting CT scan. 1505: Ct scan of Abd/ pelvis concerning acute inflammatory bowel disease such as Crohn's disease. There is no perforation or any fistulas and patient does not have obvious leukocytosis at this time appear septic or ill. However given his 1st presentation I did consult with Gastroenterology with plans for disposition recommendations- we will defer plan to GI recommendations, message with consult sent to Dr. Conner. 1535: Dr. Conner Pt can be admitted and have stool tests for C Diff and a GI panel. If symptoms do not resolve and stool studies are negative then a flex sig can be scheduled. He does not recommend steroids without a definitive diagnosis of Crohn?s disease. Hospitalist consult placed. Stool studies ordered. Spoke to patient in regards to her work up and plan, she agrees. 1555: Spoke to Hospitalist Liseth Day, will admit patient under observation. bed request placed. Differential Diagnosis Differential Diagnoses: The differential diagnosis associated with the presentation includes See MDM Admission/Observation Consideration of admission/observation: Escalation of care including admission/observation considered Consult Healthcare Provider Management of the patient was discussed with: Hospitalist and [employer] See MDM Lab Data MDM Lab Attestation statement: I reviewed the patient's lab results. 12/31/24 11:49 12/31/24 11:49 Labs: Lab Results 12/31/24 Range/Units 11:49 WBC 10.8 (4.8-10.8) X10*3/uL RBC 4.31 (4.20-5.50) X10*6/uL Hgb 11.3 L (12.0-16.0) g/dl Hct 35.0 L (37.0-47.0) % MCV 81.2 (80.0-98.0) fL MCH 26.2 L (27.0-33.0) pg MCHC 32.3 (31.0-35.0) g/dl RDW 13.0 (11.0-16.0) % Plt Count 335 (160-400) X10*3/uL MPV 9.7 (9.4-12.3) fL Immature Gran % (Auto) 0.3 (0.0-0.4) % Neut % (Auto) 77.3 H (45-73) % Lymph % (Auto) 18.4 L (20-40) % [place] % (Auto) 3.0 (2-11) % Eos % (Auto) 0.6 (0-4) % Baso % (Auto) 0.4 (0-2) % Lymph # (Auto) 2.0 (1.2-4.9) X10*3/uL [place] # (Auto) 0.3 (0.1-1.2) X10*3/uL Eos # (Auto) 0.1 (0.0-0.4) X10*3/uL Baso # (Auto) 0.0 (0.0-0.2) X10*3/uL Abs Immat Gran (auto) 0.03 (0.00-0.03) X10*3/uL Absolute Neuts (auto) 8.4 H (2.0-8.3) x10*3/uL Absolute Nucleated RBC 0.000 (0.0-0.012) X10*3/uL Nucleated RBC % (auto) 0.0 (0.0-0.2) /100WBC Sodium 139 (135-145) mmol/L Potassium 4.2 (3.3-5.1) mmol/L Chloride 109 H (96-108) mmol/L Carbon Dioxide 24 (22-29) mmol/L Anion Gap 10 L (12-20) BUN 4 L (9-16) mg/dL Creatinine 0.66 (0.5-1.4) mg/dL Estim Creat Clear Calc 125.3 Estimated GFR > 60 Random Glucose 91 (60-115) mg/dL Calcium 9.4 (8.4-10.2) mg/dL Total Bilirubin 0.3 (0.0-1.0) mg/dL AST 19 (5-31) U/L ALT 24 (0-31) U/L Alkaline Phosphatase 75 (39-117) U/L Total Protein 7.9 (6.5-8.0) g/dL Albumin 4.6 (3.5-5.0) g/dL Lipase 25 (8-78) U/L Beta HCG, Quant < 2 mIU/mL Urine Color Yellow Urine Appearance Clear Urine pH 6.0 (5.0-9.0) Ur Specific [place] 1.010 (1.005-1.025) Urine Protein Negative (Neg-Trace) mg/dL Urine Glucose (UA) Negative (Negative) mg/dL Urine Ketones Negative (Negative) mg/dL Urine Blood Negative (Negative) Urine Nitrite Negative (Negative) Ur Leukocyte Esterase Trace H (Negative) Urine RBC 0-2 (0-2) /HPF Urine WBC 6-10 H (0-5) /HPF Ur Squamous Epith Cells 11-20 (0-2) /HPF Urine Bacteria 1+ (None Seen) Hyaline Casts 0-2 (0-2) /LPF Urine Test NEGATIVE (NEGATIVE) Independent Interpretation I performed an independent interpretation of an: CT Scan Interpretation: no perforation or SBO, does not appear like diverticulitis Radiology Impression Discussion of test interpretation with radiology: I have reviewed the radiologist's reading. Radiologist Impression: Concerning acute inflammatory bowel disease such as Crohn's disease in the correct clinical settings. Prescription Management I considered prescription management with: Other Social Determinants Patient?s care significantly limited by Social Determinants of Health including: Other Social Determinant of Health Discharge Plan Discharge Clinical Impression: Gastroenteritis Abdominal pain Qualifiers: Abdominal location: multiple sites Qualified Code(s): R10.85 - Abdominal pain of multiple sites Patient Disposition: Admitted as Observation Interventions: Admission Worksheet (ED) Last Done: 12/31/24 19:51 Discharge Date/Time: 12/31/24 21:04
[2024-12-31 11:56] LABS: Hematocrit 35.0 % (37.0-47.0); Hemoglobin 11.3 g/dl (12.0-16.0); Imm Gran Abs Auto 0.03 X10*3/uL (0.00-0.03); Imm Gran Pct Auto 0.3 % (0.0-0.4); Lymphocytes Absolute Auto 2.0 X10*3/uL (1.2-4.9); MANUAL DIFF FLAG NO; Mean Corpuscular HGB Conc 32.3 g/dl (31.0-35.0); Mean Corpuscular Hemoglobin 26.2 pg (27.0-33.0); Mean Corpuscular Volume 81.2 fL (80.0-98.0); NRBC Abs Auto 0.000 X10*3/uL (0.0-0.012); NRBC Pct Auto 0.0 /100WBC (0.0-0.2); Platelet Count 335 X10*3/uL (160-400); Red Blood Count 4.31 X10*6/uL (4.20-5.50); White Blood Count 10.8 X10*3/uL (4.8-10.8)
[2024-12-31 11:58] LABS: Appearance Urine Clear; Glucose Urine UA Negative (Negative); PH 6.0 (5.0-9.0); Specific Gravity - Urine 1.010 (1.005-1.025); UMIC TRIGGER UACC YES
[2024-12-31 12:00] LABS: UPreg QC Valid YES
[2024-12-31 12:03] LABS: UACC Culture Trigger YES
[2024-12-31 12:14] LABS: Alanine Aminotransferase 24 U/L (0-31); Albumin Level 4.6 g/dL (3.5-5.0); Alkaline Phosphatase 75 U/L (39-117); Anion Gap 10 (12-20); Aspartate Amino Transferase 19 U/L (5-31); Blood Urea Nitrogen 4 mg/dL (9-16); Calcium 9.4 mg/dL (8.4-10.2); Carbon Dioxide 24 mmol/L (22-29); Chloride 109 mmol/L (96-108); Creatinine Clr Calc Pharmacy 125.3; Estimated Glomerular Filt Rate > 60; Lipase 25 U/L (8-78); Potassium 4.2 mmol/L (3.3-5.1); Sodium 139 mmol/L (135-145); Total Protein 7.9 g/dL (6.5-8.0)
[2024-12-31 14:27] VITALS: BP 119/58; PULSE 63; RESP 14; TEMP 36.4; O2SAT 100
[2024-12-31] MEDS: iohexoL 350 MG/ML 100 ML INFUS..BTL IV (14:38)
--- NOTE | 2024-12-31 16:04 | PHA.MEDREC ---
Addendum entered by Silverio Sidhu, Trista 12/31/24 16:16: MED REC CHECKEDB Y [facility] Original Note: Pharmacy Consult ? Medication Reconciliation Pharmacy has completed the medication reconciliation. Patient was able to name her medications. Patient had all her medications to day.
--- NOTE | 2024-12-31 16:12 | PM.IMHP ---
History of Present Illness Date of Service: 12/31/24 Attending physician on admission: Shanna Gerardo Chief Complaint: N/V/D This is a 24 year old female with no significant past medical history who presents to the emergency department with nausea/vomiting/diarrhea. Patient went out to dinner on Saturday and had pathology, she got chicken and so she. Since that time she has been having persistent diarrhea. Every time she eats anything she either throws up or gets crampy abdominal pain followed by non-bloody diarrhea. She can have up to 15 episodes of diarrhea in a given day. She denies any recent sick contacts. She has no associated fever or chills. She has no recent travel. Due to persistent symptoms she came to the ED for evaluation. CT scan of the abdomen/pelvis showed concern for inflammatory bowel disease such as Crohn's disease. Patient denies any history of known inflammatory bowel disease. Lab work was unremarkable, she was afebrile in the ED. Review of Systems Review of Systems: Yes all other systems are reviewed and are negative Constitutional: Constitutional: Denies chills and Denies fever(s) Cardiovascular: Cardiovascular: Denies chest pain and Denies claudication Gastrointestinal: Gastrointestinal: Reports diarrhea, Reports nausea and Reports vomiting PMFSH Social History Advance Directives: No Advance Directives Information Provided: No Meds Allergies Allergy/AdvReac Type Severity Reaction Status Date / Time No Known Allergies Allergy Verified 12/31/24 11:12 Home Medications ?Medication ?Instructions ?Recorded ?Confirmed ?Last Taken ?Type acetaminophen 500 mg tablet 1,000 mg PO Q6H 12/31/24 12/31/24 12/31/24 History norethindrone 1 mg-ethinyl 1 tab PO DAILY 12/31/24 12/31/24 12/31/24 History estradiol 20 mcg (21)-iron 75 mg (7) tablet (04/06 (28)) Physical Exam Vital Signs and Narrative: Vital Signs: Last Vital Signs Temp 97.5 F 12/31/24 14:27 Pulse 63 12/31/24 14:27 Resp 14 12/31/24 14:27 BP 119/58 L 12/31/24 14:27 Pulse Ox 100 12/31/24 14:27 O2 Del Method Room Air 12/31/24 14:27 BMI result Body Mass Index 31.9 Const: General: cooperative, comfortable, alert and awake Nutritional Appearance: overweight Orientation/consciousness: patient oriented x3 Resp: Effort & Inspection: normal respiratory effort, able to speak in complete sentences, no respiratory distress and no use of accessory muscles Cardio: Rate: regular rate GI: Other: no guarding no rebound Inspection: No distended Palpation (GI): Soft to palpation and nontender Neuro: General: patient oriented x3, moves all extremities and CN's II-XI intact bilaterally Results Labs 12/31/24 11:49 12/31/24 11:49 Labs: Laboratory Results - last 24 hr 12/31/24 11:49 MCV 81.2 MCH 26.2 L MCHC 32.3 RDW 13.0 Plt Count 335 MPV 9.7 Immature Gran % (Auto) 0.3 Neut % (Auto) 77.3 H Lymph % (Auto) 18.4 L [place] % (Auto) 3.0 Eos % (Auto) 0.6 Baso % (Auto) 0.4 Lymph # (Auto) 2.0 [place] # (Auto) 0.3 Eos # (Auto) 0.1 Baso # (Auto) 0.0 Abs Immat Gran (auto) 0.03 Absolute Neuts (auto) 8.4 H Absolute Nucleated RBC 0.000 Nucleated RBC % (auto) 0.0 Anion Gap 10 L Estim Creat Clear Calc 125.3 Estimated GFR > 60 Random Glucose 91 Calcium 9.4 Total Bilirubin 0.3 AST 19 ALT 24 Alkaline Phosphatase 75 Total Protein 7.9 Albumin 4.6 Lipase 25 Beta HCG, Quant < 2 Urine Color Yellow Urine Appearance Clear Urine pH 6.0 Ur Specific [place] 1.010 Urine Protein Negative Urine Glucose (UA) Negative Urine Ketones Negative Urine Blood Negative Urine Nitrite Negative Ur Leukocyte Esterase Trace H Urine RBC 0-2 Urine WBC 6-10 H Ur Squamous Epith Cells 11-20 Urine Bacteria 1+ Hyaline Casts 0-2 Urine Test NEGATIVE Imaging Radiologist's Impressions: Impressions Abdomen/Pelvis CT 12/31/24 14:04 IMPRESSION: Concerning acute inflammatory bowel disease such as Crohn's disease in the correct clinical settings. Hepatomegaly. Fleischner guidelines were followed. Electronically signed by: Juancarlos August MD 12/31/2024 02:49 PM EDT Assessment and Plan (1) Gastroenteritis: Status: Acute Plan This is a 24-year-old female with no significant past medical history who presents to the emergency department with 5 day history of nausea, vomiting, diarrhea found to have CT scan concerning for possible inflammatory bowel disease N/V/D possible gastroenteritis CT scan with concern for inflammatory bowel dz, pt with no history check stool studies, cdif - if negative and symptoms persist can consider further work up symptomatic support GI consult dvt ppx - low risk, early ambulation Quality Stroke Does the patient have a stroke diagnosis?: No VTE Prior VTE?: No VTE Risk Level:: Medical - low VTE Device Contraindication: N/A - Device Ordered VTE Drug Contraindication: Treatment Not Indicated
[2024-12-31 17:11] VITALS: BP 114/58; PULSE 70; RESP 16; TEMP 36.7; O2SAT 98
[2024-12-31] MEDS: Lactated Ringers 1,000 ML 100 ML IVCONT ×2 (17:13→21:13)
--- NOTE | 2024-12-31 18:25 | PC.NURSE ---
patient requested tylenol for her headache
[2024-12-31 21:00] VITALS: BP 114/58; PULSE 65; RESP 18; TEMP 37.2; O2SAT 99
[2024-12-31 23:41] VITALS: BP 118/59; PULSE 75; RESP 18; TEMP 36.3; O2SAT 100
[2025-01-01 03:48] VITALS: BP 121/62; PULSE 76; RESP 18; TEMP 36.3; O2SAT 98
--- NOTE | 2025-01-01 06:49 | P.CNGI_ITS ---
History of Present Illness Data of Consult Service Date: 01/01/25 Requesting physician: Liseth Day Primary Care Provider: None Physician HPI Reason for consult: ? inflammatory bowel dz on imaging 12/31/[address] SCAN SHOWED: GASTROINTESTINAL TRACT: Intestinal wall thickening resulting in narrowed lumen of the large intestine extending from the mid transverse colon to the rectosigmoid colon junction. Gas and fluid-filled mildly prominent small bowel loops. Questionable segmental intestinal wall thickening at the the jejunal loops. The appendix is short and normal. No ascites. No pneumoperitoneum. No pneumatosis intestinalis. OSSEOUS STRUCTURES: Sclerosis and the sacroiliac joints, bilaterally. No acute fracture or listhesis. IMPRESSION: Concerning acute inflammatory bowel disease such as Crohn's disease in the correct clinical settings. Hepatomegaly. [facility] Social History Social History Patient Tobacco Use Status: Never used Tobacco Meds Allergies Allergy/AdvReac Type Severity Reaction Status Date / Time No Known Allergies Allergy Verified 12/31/24 11:12 Active Medications: Current Medications Acetaminophen (Acetaminophen 325 Mg Tablet) 650 mg PO Q6H PRN PRN Reason: Pain, Mild 1-3,fever,headache Last Admin: 12/31/24 18:25 Dose: 650 mg Calcium Carbonate (Calcium Carbonate 750 Mg Tab.Chew) 750 mg PO Q4H PRN PRN Reason: Heartburn Lactated Ringer's (Lr) 1,000 mls @ 100 mls/hr IVCONT .Q10H [facility] Last Admin: 01/01/25 03:34 Dose: Not Given Melatonin (Melatonin 3 Mg Tablet) 6 mg PO BEDTIME PRN PRN Reason: Insomnia Ondansetron HCl (Ondansetron Hcl 4 Mg/2 Ml Vial) 4 mg IVPUSH Q8H PRN PRN Reason: Nausea and Vomiting Sodium Chloride (0.9 % Sodium Chloride Flush 3 Ml Syringe) 3 ml IVFLUSH QSHIFT [facility] Last Admin: 12/31/24 23:21 Dose: Not Given Home Medications ?Medication ?Instructions ?Recorded ?Confirmed ?Last Taken ?Type acetaminophen 500 mg tablet 1,000 mg PO Q6H 12/31/24 1 12/31/24 History norethindrone 1 mg-ethinyl 1 tab PO DAILY 1012/31/24 History estradiol 20 mcg (21)-iron 75 mg (7) tablet ( FE 04/06 (28)) Physical Exam 2 Vital Signs: Vital Signs: Last Vital Signs Temp 97.4 F 01/01/25 03:48 Pulse 76 01/01/25 03:48 Resp 18 01/01/25 03:48 BP 121/62 01/01/25 03:48 Pulse Ox 98 01/01/25 03:48 O2 Del Method Room Air 01/01/25 03:48 BMI result Body Mass Index 31.9 Results Labs 12/31/24 11:49 12/31/24 11:49 Labs: Short CBC 12/31/24 Range/Units 11:49 WBC 10.8 (4.8-10.8) X10*3/uL Hgb 11.3 L (12.0-16.0) g/dl Hct 35.0 L (37.0-47.0) % Plt Count 335 (160-400) X10*3/uL BMP 12/31/24 11:49 Sodium 139 Potassium 4.2 Chloride 109 H Carbon Dioxide 24 BUN 4 L Creatinine 0.66 Calcium 9.4 Liver Function 12/31/24 Range/Units 11:49 Total Bilirubin 0.3 (0.0-1.0) mg/dL AST 19 (5-31) U/L ALT 24 (0-31) U/L Alkaline Phosphatase 75 (39-117) U/L Albumin 4.6 (3.5-5.0) g/dL Urine 12/31/24 Range/Units 11:49 Urine Color Yellow Urine Appearance Clear Urine pH 6.0 (5.0-9.0) Ur Specific [place] 1.010 (1.005-1.025) Urine Protein Negative (Neg-Trace) mg/dL Urine Glucose (UA) Negative (Negative) mg/dL Procedures Date of Service Date of Service: 01/01/25
--- NOTE | 2025-01-01 07:14 | P.PNIM_ITS ---
Subjective Subjective Date of Service: 01/01/25 Physical Exam 2 Vital Signs: Vital Signs: Last Vital Signs Temp 97.4 F 01/01/25 03:48 Pulse 76 01/01/25 03:48 Resp 18 01/01/25 03:48 BP 121/62 01/01/25 03:48 Pulse Ox 98 01/01/25 03:48 O2 Del Method Room Air 01/01/25 03:48 BMI result Body Mass Index 31.9 Objective Data Active Medications Acetaminophen (Acetaminophen 325 Mg Tablet) 650 mg PO Q6H PRN PRN Reason: Pain, Mild 1-3,fever,headache Last Admin: 12/31/24 18:25 Dose: 650 mg Documented By: THELMA Calcium Carbonate (Calcium Carbonate 750 Mg Tab.Chew) 750 mg PO Q4H PRN PRN Reason: Heartburn Lactated Ringer's (Lr) 1,000 mls @ 100 mls/hr IVCONT .Q10H [facility] Last Admin: 01/01/25 03:34 Dose: Not Given Documented By: KAYLEE Non-Admin Reason: IV Running Melatonin (Melatonin 3 Mg Tablet) 6 mg PO BEDTIME PRN PRN Reason: Insomnia Ondansetron HCl (Ondansetron Hcl 4 Mg/2 Ml Vial) 4 mg IVPUSH Q8H PRN PRN Reason: Nausea and Vomiting Sodium Chloride (0.9 % Sodium Chloride Flush 3 Ml Syringe) 3 ml IVFLUSH QSHIFT [facility] Last Admin: 12/31/24 23:21 Dose: Not Given Documented By: KAYLEE Non-Admin Reason: IV Running Labs 12/31/24 11:49 12/31/24 11:49 Labs: Laboratory Results - last 24 hr 12/31/24 11:49 MCV 81.2 MCH 26.2 L MCHC 32.3 RDW 13.0 Plt Count 335 MPV 9.7 Immature Gran % (Auto) 0.3 Neut % (Auto) 77.3 H Lymph % (Auto) 18.4 L [place] % (Auto) 3.0 Eos % (Auto) 0.6 Baso % (Auto) 0.4 Lymph # (Auto) 2.0 [place] # (Auto) 0.3 Eos # (Auto) 0.1 Baso # (Auto) 0.0 Abs Immat Gran (auto) 0.03 Absolute Neuts (auto) 8.4 H Absolute Nucleated RBC 0.000 Nucleated RBC % (auto) 0.0 Anion Gap 10 L Estim Creat Clear Calc 125.3 Estimated GFR > 60 Random Glucose 91 Calcium 9.4 Total Bilirubin 0.3 AST 19 ALT 24 Alkaline Phosphatase 75 Total Protein 7.9 Albumin 4.6 Lipase 25 Beta HCG, Quant < 2 Urine Color Yellow Urine Appearance Clear Urine pH 6.0 Ur Specific [place] 1.010 Urine Protein Negative Urine Glucose (UA) Negative Urine Ketones Negative Urine Blood Negative Urine Nitrite Negative Ur Leukocyte Esterase Trace H Urine RBC 0-2 Urine WBC 6-10 H Ur Squamous Epith Cells 11-20 Urine Bacteria 1+ Hyaline Casts 0-2 Urine Test NEGATIVE Quality Stroke Does the patient have a stroke diagnosis?: No VTE Prior VTE?: No VTE Risk Level:: Medical - low VTE Device Contraindication: N/A - Device Ordered VTE Drug Contraindication: Treatment Not Indicated
[2025-01-01] MEDS: Lactated Ringers 1,000 ML 100 ML IVCONT (07:26)
[2025-01-01 08:00] VITALS: BP 105/62; PULSE 60; RESP 20; TEMP 37.3; O2SAT 98
--- NOTE | 2025-01-01 09:57 | P.DS_ITS ---
DS: Providers Provider Date of Service: 01/01/25 Date of admission: 12/31/24 16:19 Date of discharge: 01/01/25 Primary care physician: None Physician Consults: 12/31/24 15:57 Consult to Gastroenterology Routine Consulting Provider: Nilesh Conner Reason for consultation: ? inflammatory bowel dz on imaging Has provider been notified: No Attending physician on discharge: Shanna Gerardo Discharging clinician: Liseth Day DS: Diagnosis Discharge Diagnosis (1) Gastroenteritis: Status: Acute DS: Summary Hospital Course Hospital Course: From H&P on the day of admission This is a 24 year old female with no significant past medical history who presents to the emergency department with nausea/vomiting/diarrhea. Patient went out to dinner on Saturday and had pathology, she got chicken and so she. Since that time she has been having persistent diarrhea. Every time she eats anything she either throws up or gets crampy abdominal pain followed by non-bloody diarrhea. She can have up to 15 episodes of diarrhea in a given day. She denies any recent sick contacts. She has no associated fever or chills. She has no recent travel. Due to persistent symptoms she came to the ED for evaluation. CT scan of the abdomen/pelvis showed concern for inflammatory bowel disease such as Crohn's disease. Patient denies any history of known inflammatory bowel disease. Lab work was unremarkable, she was afebrile in the ED. N/V/D CT scan showing concern for possibly inflammatory bowel disease. Patient was admitted overnight for observation, treated with IVF for hydration. Patient had no further episodes of vomiting or diarrhea, no GI panel was able to be collected. She has been able to tolerate a diet without difficulty. Symptoms likely due to viral gastroenteritis. If recurrent symptoms recommend to reach out to PCP. Time Attestation Discharge Coordination Time (in mins): 30 Quality: Safe Use of Opioids Does Pt have an Active Cancer Diagnosis on the Problem List?: No Quality: Stroke Does the patient have a stroke diagnosis?: No Physical Exam Vital Signs: Vital Signs: Last Vital Signs Temp 99.1 F 01/01/25 08:00 Pulse 60 01/01/25 08:00 Resp 20 01/01/25 08:00 BP 105/62 01/01/25 08:00 Pulse Ox 98 01/01/25 08:00 O2 Del Method Room Air 01/01/25 08:00 BMI result Body Mass Index 31.9 Const: General: cooperative, comfortable, alert and awake Nutritional Appearance: overweight Orientation/consciousness: patient oriented x3 Resp: Effort & Inspection: normal respiratory effort, able to speak in complete sentences, no respiratory distress and no use of accessory muscles Cardio: Rate: regular rate GI: Other: no guarding no rebound Inspection: No distended Palpation (GI): Soft to palpation and nontender Neuro: General: patient oriented x3, moves all extremities and CN's II-XI intact bilaterally DS: Data Data Completed and Pending Labs on day of discharge: Laboratory Results - last 24 hr 12/31/24 11:49 WBC 10.8 RBC 4.31 Hgb 11.3 L Hct 35.0 L MCV 81.2 MCH 26.2 L MCHC 32.3 RDW 13.0 Plt Count 335 MPV 9.7 Immature Gran % (Auto) 0.3 Neut % (Auto) 77.3 H Lymph % (Auto) 18.4 L [place] % (Auto) 3.0 Eos % (Auto) 0.6 Baso % (Auto) 0.4 Lymph # (Auto) 2.0 [place] # (Auto) 0.3 Eos # (Auto) 0.1 Baso # (Auto) 0.0 Abs Immat Gran (auto) 0.03 Absolute Neuts (auto) 8.4 H Absolute Nucleated RBC 0.000 Nucleated RBC % (auto) 0.0 Sodium 139 Potassium 4.2 Chloride 109 H Carbon Dioxide 24 Anion Gap 10 L BUN 4 L Creatinine 0.66 Estim Creat Clear Calc 125.3 Estimated GFR > 60 Random Glucose 91 Calcium 9.4 Total Bilirubin 0.3 AST 19 ALT 24 Alkaline Phosphatase 75 Total Protein 7.9 Albumin 4.6 Lipase 25 Beta HCG, Quant < 2 Urine Color Yellow Urine Appearance Clear Urine pH 6.0 Ur Specific [place] 1.010 Urine Protein Negative Urine Glucose (UA) Negative Urine Ketones Negative Urine Blood Negative Urine Nitrite Negative Ur Leukocyte Esterase Trace H Urine RBC 0-2 Urine WBC 6-10 H Ur Squamous Epith Cells 11-20 Urine Bacteria 1+ Hyaline Casts 0-2 Urine Test NEGATIVE Discharge Plan Discharge Anticipated Discharge Date/Time: 01/01/25 10:12 Patient Disposition: Home, Self-Care Discharge Diagnosis: probable viral gastroenteritis Referrals: Physician,None [Primary Care Provider, Medical] - 1 Week Discharge Medications: Continued norethindrone-e.estradiol-iron [Junel FE 04/06 (28)] 1 mg-20 mcg (21)/75 mg (7) tablet 1 tab PO DAILY acetaminophen 500 mg tablet 1,000 mg PO Q6H Discharge Orders: Discharge Order (Routine); Ordered 01/01/25 Ordered By: Liseth Day Activity on Discharge: As tolerated Stand Alone Forms: Patient Portal Discharge page Print Language: Bangladeshi Care Plan Goals: see below Health Concerns: nausea, vomiting, diarrhea Plan of Treatment: symptoms are likely due to viral gastroenteritis. Stay hydrated, recommend good hand hygeine. call PCP for follow up with any recurrent symptoms Assessment: see discharge summary
[2025-01-01 11:48] VITALS: BP 108/55; PULSE 74; RESP 20; TEMP 36.8; O2SAT 99
--- NOTE | 2025-01-01 13:03 | MHC.CM.PN ---
PT REPORTS SHE LIVES WITH HER GRANDMOTHER AND 10 MONTH OLD CHILD SHE DOES NOT HAVE A PCP, INFORMATION ON OBTAINING A PCP WITH A MH PLAN PROVIDED ALONG WITH LIST OF PROVIDERS PT DECLINES A HCP PT CLEARED TO [place] HOME TODAY WITH NO SERVICES VIA SELF TRANSPORT
--- OUTSIDE RECORDS SUMMARY | 2025-01-01 17:15 | XMS_ITS | Clinical Summary ---
Author Organization [facility] [address] [facility] Address [address] [place] [id number] Phone Care Team Providers Care Candy Catcher Name Role Phone Physician, No Pcp Primary Care Provider Unavaila ble Allergies No known active allergies Medications norethindrone-et hinyl estradiol (04/06) 1 mg-20 mcg (21)/75 mg (7) per tablet Take 1 tablet by mouth 1 (one) time each day. 28 tablet 11 10/21/2024 6 Active Active Problems Problem Noted Date Diagnosed Date Uterine contractions 02/25/2024 S/P primary low transverse 02/25/2024 Failure to progress in first stage of labor 02/15 Non-reassuring heart t ones, delivered, current hospitalization 02/25/2024 39 weeks gestation of 02/21/2024 Decreased movements in third trimester 08/2023 Class 1 obesity 02/11/2024 Encounter for supervision of normal , a ntepartum 01/30/2024 Overview (01/30/2024): 1. [facility] site: [address] 2. Delivery site: [facility] 3. Mobile Mommas: 4. Dating criteria: 1st trimester ultrasound only 5. Blood type: Lab Results Component Value Date BLDTYPE B POSITIVE 08/07/2023 6. Genetic screening: Date: Result: Low risk male 6. GBS: Date: 7. FOB name: Nestor SPRINGER 10/22/1999 8. Plans A. Epidural or other pain management - B. Labor support identified - C. Tdap - Date:,12/04/2023 Flu - Date: 12/04/2023 D. Breast or Bottle feed: Breast E. Baby's name - F. Circumcision - 9. Hospital Course: Encounter for supervision of normal first in third trimester 01/27/2024 Overview (02/21/2024): 1. [facility] site: [address] 2. Delivery site: [facility] 3. Mobile Mommas: 4. Dating criteria: 1st trimester ultrasound only 5. Blood type: Lab Results Component Value Date BLDTYPE B POSITIVE 08/07/2023 6. Genetic screening: Date: Result: Low risk male 6. GBS: negative Date: 02/04 7. FOB name: Nestor SPRINGER 10/22/1999 8. Plans A. Epidural or other pain management - B. Labor support identified - C. Tdap - Date:,12/04/2023 Flu - Date: 12/04/2023 D. Breast or Bottle feed: Breast E. Baby's name - F. Circumcision - 9. Hospital Course: Maternal obesity, antepartum 12/19/2023 Overview (01/30/2024): bmi 32.58 HgbA1C and 1 hour GTT at initial labs ASA 162mg at 12 weeks until delivery Detailed anatomy ultrasound Repeat GTT 24-28 weeks if early is normal BMI of 50 by 28wks transfer to [facility] DVT prophylaxis- Lovenox if CS and BMI >35 Marijuana use during 12/19/2023 Overview (01/30/2024): IP UDS pos for marijuana. Was smoking a lot prior to but has stopped now and plans to continue to abstain. Anemia affecting in first trimester Overview (01/30/2024): Cutoff hemoglobin levels: First trimester <11.0 - 10.5 on IP labs, rx for Fe sent Second trimester <10.5 Third trimester <11.0 <10.0 -If micro or normocytic anemia - tx with oral Fe (sulfate or gluconate) every other day, repeat CBC 2-3 weeks -If normalized, continue until 6 weeks -If not normalized, make sure compliant and if so, refer to Heme for iron infusion -If macrocytic anemia with MCV>100, then order B12 and folate levels and treat prn, recheck in 2-3 weeks -If normalized, continue until 6 weeks -If not, make sure compliant and if so, refer to Heme Lab Results Component Value Date HGB 9.6 11/28/2023 HGB 10.5 08/07/2023 12/04/2023 increase iron bid Alpha thalassemia silent carrier 12/19/2023 Overview (01/30/2024): Horizon 14 Panel Positive: Silent Carrier for Alpha Thalassemia (aa/a-). 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 Depending on carrier status of the patient's partner, this couple may be at increased risk to have a child with Hemoglobin H Disease. Carrier screening of the patient's partner is suggested. 10/09/2023 pt will bring fob back to office , he does not have his insurance card or ID on him Brandie NEWMAN RN Alpha thalassemia silent carrier 10/07/2023 Overview (01/07/2024): Horizon 14 Panel Positive: Silent Carrier for Alpha Thalassemia (aa/a-). 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 Depending on carrier status of the patient's partner, this couple may be at increased risk to have a child with Hemoglobin H Disease. Carrier screening of the patient's partner is suggested. 10/09/2023 pt will bring fob back to office , he does not have his insurance card or ID on him Brandie NEWMAN RN Anemia affecting in first trimester Overview (01/07/2024): Cutoff hemoglobin levels: First trimester <11.0 - 10.5 on IP labs, rx for Fe sent Second trimester <10.5 Third trimester <11.0 <10.0 -If micro or normocytic anemia - tx with oral Fe (sulfate or gluconate) every other day, repeat CBC 2-3 weeks -If normalized, continue until 6 weeks -If not normalized, make sure compliant and if so, refer to Heme for iron infusion -If macrocytic anemia with MCV>100, then order B12 and folate levels and treat prn, recheck in 2-3 weeks -If normalized, continue until 6 weeks -If not, make sure compliant and if so, refer to Heme Lab Results Component Value Date HGB 9.6 11/28/2023 HGB 10.5 08/07/2023 12/04/2023 increase iron bid Marijuana use during 08/13/2023 Overview (01/07/2024): IP UDS pos for marijuana. Was smoking a lot prior to but has stopped now and plans to continue to abstain. Maternal obesity, antepartum 08/07/2023 Overview (01/07/2024): bmi 32.58 HgbA1C and 1 hour GTT at initial labs ASA 162mg at 12 weeks until delivery Detailed anatomy ultrasound Repeat GTT 24-28 weeks if early is normal BMI of 50 by 28wks transfer to [facility] DVT prophylaxis- Lovenox if CS and BMI >35 Immunizations Immunization Administration Dates Next Due Influenza Quadravalent, MDCK , 0.5ml, preservative free (Flucelvax) 6mo and older 12/04/2023 Influenza Quadrivalent, 0.5m l, preservative free (Fluarix; FluLaval; Fluzone) ages 6mo and older (Afluria) 3yo and older 12/04/2023 Tdap Tetanus diptheria acell ular pertussis (Boostrix; Adacel) 7yo and older 12/04/2023,12/04/2023 Surgical History Surgery Date Site/Laterality Comments OTHER SURGICAL HISTORY PROCEDURE: DENIES PREVIOUS SURGERY Medical History Medical History Date Comments Patient denies medical problems DX:Patient denies medical problems Obesity 08/07/2023 DX:Obesity; COMM ENT: bmi 32.58 Family History Medical History Relation Name Comments Asthma Aunt Other: Other Aunt maternal aunt ? lupus Asthma Half-Brother 1 Other: Other Half-Brother 1 fatty liver No Known Problems Half-Brother 2 No Known Problems Half-Sister 1 x2 Other: Other Half-Sister 2 seizure disord er Anemia Maternal Grandmother Asthma Mother Asthma Sister x1 Relation Name Status Comments Aunt Alive Half-Brother 1 Alive Half-Brother 2 Alive Half-Sister 1 x2 Alive Half-Sister 2 Alive Maternal Grandmother Alive Mother Alive Sister x1 Alive Social History Tobacco Use Types Packs/Day Years Used Date Smoking Tobacco: Never Smokeless Tobacco: Never Alcohol Use Standard Drinks/Week Comments Never 0 (1 standard drink = 0.6 oz pur e alcohol) Housing Instability Answer Date Recorde d Are you worried that in the next 2 months you may not have stable housing? Unable to respond 02/11/2024 Food Access & Nutrition Answer Date Rec orded Do you have access to a vari ety of food including fruits and vegetables? Unable to respond 02/11/2024 Financial Risk Answer Date Recorded How hard is it for you to pa y for the very basics like food, housing, medical care, and air conditioning / heating? Patient declined 02/11/2024 Food Risk Answer Date Recorded Within the past 12 months we worried whether our food would run out before we got money to buy more. Never true 02/11/2024 Within the past 12 months th e food we bought just didn't last and we didn't have money to get more. Never true 02/11/2024 Living Situation Answer Date Recorded What is your living situation? Unrecognized valu e 02/11/2024 Comments No Sex and Gender Information Value Date Recorded Sex Assigned at Not on file Legal Sex Female 8:15 PM EST Gender Identity Female 02/21/2024 10:10 PM EST Sexual Orientation Not on file Obstetrics History Para Term AB IAB SAB Ectopic Multiple Livin g Live Births 1 1 1 0 0 0 1 1 Date Outcome GA Total Labor Labor/2nd/3rd Weight Sex Type Anes PTL Cordelia A1 A5 Name Clin 2023 Term 40w 0d 2977 g (105 oz) M CS-LT ranv Epidur al N Livin g 9 9 Zaylen Kapil Barton o Complications: Intolera nce Delivery Location:[facility]) Last Filed Vital Signs Vital Sign Reading Time Taken Comments Blood Pressure 111/75 05/05/2024 9:26 AM EST Pulse 78 05/05/2024 9:26 AM EST Temperature 37.1 C (98.8 F) 02/29/2024 8:05 AM EST Respiratory Rate 18 02/29/2024 8:05 AM EST Oxygen Saturation 100% 02/29/2024 8:05 AM EST Inhaled Oxygen Concentration - - Weight 90.3 kg (199 lb) 05/05/2024 9:26 AM EST Height 157.5 cm (5' 2 ) 05/05/2024 9:26 AM EST Body Mass Index 36.4 05/05/2024 9:26 AM EST Plan of Treatment Health Maintenance Due Date Last Done Comments HPV Vaccines (1 - 3-dose series) 2017 Meningococcal B Vaccine (1 of 2 - Standard) 2018 Hepatitis B Vaccines (1 of 3 - 19+ 3-dose series) 2021 Cholesterol Screening (Lipid Panel) 04/11/2023 COVID-19 Vaccine ( - season) 2024 Influenza Vaccine (#1) 2024 12/04/2023, 2023 Social Influencers of Health Screening 02/10/2025 02/11/2024 Gonorrhea/Chlamydia Screening 05/05/2025 05/05/2024, 02/05/2024, 08/13/2023, Additional history exists Cervical Cancer Screening: Pap Smear 08/12/2026 08/13/2023, 08/13/2023, 08/13/2023, Additional history exists DTaP,Tdap,and Td Vaccines (3 - Td or Tdap) 12/03/2033 12/04/2023, 12/04/2023 RSV Immunization Adult Patients (1 - 1-dose 75+ series) 2077 HIV Screening Completed 08/07/2023, 08/07/2023 Hepatitis C Screening Completed 08/07/2023, 024 Depression Screening Completed 03/18/2024 HIB Vaccines Aged Out No longer eligi ble based on patient's age to complete this topic Hepatitis A Vaccines Aged Out No long er eligible based on patient's age to complete this topic IPV Vaccines Aged Out No longer eligi ble based on patient's age to complete this topic MMR Vaccines Aged Out No longer eligi ble based on patient's age to complete this topic Meningococcal ACWY Vaccine Aged Out N o longer eligible based on patient's age to complete this topic Pneumococcal Vaccine: Pediatrics (0 to 5 Years) and At-Risk Patients (6 to 49 Years) Aged Out No longer eligible based on patient's age to complete this topic RSV Immunization Patients Under 20 months Aged Out No longer eligible based on patient's age to complete this topic Varicella Vaccines Aged Out No longer eligible based on patient's age to complete this topic Procedures Procedure Name Priority Date/Time Associated Diagnosis Comments CHLAMYDIA TRACHOMATIS AND NEISSERIA GONORRHOEAE PCR Routine 05/05/2024 9:40 AM EST Routine follow-up Screen for STD (sexually transmitted disease) HPV Routine 08/13/2023 HEPATITIS C SCREENING Routine 08/07/2023 HIV SCREENING Routine 08/07/2023 from Last 3 Months or Most Recently Relevant to Health Maintenance Results * Chlamydia trachomatis and Neisseria gonorrhoeae molecular study (05/05/2024 9:40 AM EST) Neisseria gonorrhoeae PCR Negative Negative LAB MOLECULAR DIAGNOSTICS METHOD 05/06/2024 9:33 AM EST [facility] Chlamydia trachomatis PCR Negative Negative LAB MOLECULAR DIAGNOSTICS METHOD 05/06/2024 9:33 AM EST [facility] Swab Cervix uteri structure / Unknown Non-blood Collection / Unknown 05/05/2024 9:40 AM EST 05/05/2024 4:12 PM EST us Kimmy Guerin CNM LAB MICROBIOLOGY - GENERAL OR DERABLES Final Result [facility] [address] [place] [address], * Cervical Cancer Screening: HPV (08/13/2023) Cervical Cancer Screening: HPV negative, abstracted Historical Provider HEALTH MAINTENANCE Final Result * Hm HIV Screening (08/07/2023) HIV Screening abstracted Historical Provider HEALTH MAINTENANCE Final Result * Hepatitis C Screening (08/07/2023) Hepatitis C Screening abstracted Historical Provider HEALTH MAINTENANCE Final Result from Last 3 Months or Most Recently Relevant to Health Maintenance Insurance [facility] [email or web address] PLANS [facility] Advance Directives * Full Code - Default (Latest Code Status on File) Date Activated Date Inactivated Comments 02/26/2024 3:54 AM 02/29/2024 2:27 PM This is or nicolasa is used when code status has not been discussed with the patient, or code status is otherwise unknown/unconfirmed To update the patient's code status, place a code status order. Do not modify or discontinue any currently active code status orders. * Full Code - Default Date Activated Date Inactivated Comments 02/25/2024 12:22 AM 02/26/2024 3:54 AM This is o rder is used when code status has not been discussed with the patient, or code status is otherwise unknown/unconfirmed To update the patient's code status, place a code status order. Do not modify or discontinue any currently active code status orders. Care Teams Candy Catcher Relationship Specialty Start Date End Date Physician, No Pcp PCP - General 02/03/24
== END 2025-01-01 12:57 | disposition home or self-care (01) ==
LOC: HO.ED 15:47 → HO.EDOVER 16:40 → HO.S3 19:51 → HO.EDOVER 01-01 14:44 → HO.S3 01-01 14:44
PROVIDERS: Physician Assistant; Admitting Provider Physician Assistant Medical; Emergency Provider Emergency Medicine; Visit Provider Student in an Organized Health Care Education/Training Program
DX: K52.9 Noninfective gastroenteritis and colitis, unspecified (principal); R10.85 Abdominal pain of multiple sites; R11.2 Nausea with vomiting, unspecified
CPT/HCPCS: 36415; 74177; 80053; 81001; 81003; 81025; 83690; 84702; 85025; 87086; 96360; 96361; 99221; 99285; J7120; Q9967

== ENCOUNTER → 2024-12-31 13:45 | Outpatient (BNV) | payer OTHER, SELFPAY | PROVIDERS: Emergency Provider Emergency Medicine; Visit Provider Radiology Diagnostic Radiology | DX: R16.0 Hepatomegaly, not elsewhere classified (principal) | CPT/HCPCS: 74177 ==

== ENCOUNTER → 2024-12-31 16:19 | Outpatient (BNV) | payer OTHER, SELFPAY | PROVIDERS: Admitting Provider Physician Assistant Medical; Emergency Provider Emergency Medicine; Visit Provider Physician Assistant Medical | DX: K52.9 Noninfective gastroenteritis and colitis, unspecified (principal) | CPT/HCPCS: 99223; 99239 ==